=== PATIENT | female | born 1970 | race Caucasian/White ===

== ENCOUNTER 2017-11-26 09:40 | Emergency (ER) | payer OTHER ==
[~2017-11-26] VITALS: Ht 177.8 cm; Wt 103.4 kg
[~2017-11-26 09:40] MED LIST: ACETAMINOPHEN-1 EAC1 PO; AUGMENTIN 875875 MG PO; BUTALB-APAP-CA1 EACH PO; CRUTCHES MISCELL; FIORINAL 50-321 EACH PO; FLEXERIL PO; HYDROCODON-ACE1 EAC7 PO; HYDROCODONE-AP1 EAC6 PO; IBUPROFEN 800800 M1 PO; MEDROLDOSEPACK PO; NOHOMEMEDICATIONS; NORCO 5-325 TA1 EACH PO; OCUFLOX10 ML OP; ONDANSETRON HCL4 M2 PO; OTHER MISCELL; PERCOCET 5-3251 EACH PO; PROMETHAZINE12.5 M1 PO; TRAMADOL 50 MG50 MG PO
[2017-11-26 10:50] VITALS: BP 142/79
== END 2017-11-26 10:51 | disposition home or self-care (01) ==
LOC: M.ERS 09:40
DX: S90.121A Contusion of right lesser toe(s) without damage to nail, initial encounter (principal); G43.909 Migraine, unspecified, not intractable, without status migrainosus; F17.210 Nicotine dependence, cigarettes, uncomplicated; Z90.710 Acquired absence of both cervix and uterus; Z88.2 Allergy status to sulfonamides; Z88.8 Allergy status to other drugs, medicaments and biological substances; W22.8XXA Striking against or struck by other objects, initial encounter; Y93.89 Activity, other specified; Y92.89 Other specified places as the place of occurrence of the external cause; Y99.8 Other external cause status

== ENCOUNTER 2020-09-07 20:35 | Emergency (ER) | payer OTHER ==
[~2020-09-07] VITALS: Ht 175.3 cm; Wt 99.8 kg
[2020-09-07] MEDS ORDERED: ZYRTEC10 M2 PO (20:50)
[2020-09-07] MEDS ORDERED: TROKENDI XR200 MG PO (20:50)
[2020-09-07] MEDS ORDERED: COMPAZINE10 MG PO (20:50)
[2020-09-07] MEDS ORDERED: TRAMADOL 50 MG50 MG PO (20:51)
[2020-09-07] MEDS ORDERED: NURTEC ODT75 MG PO (20:52)
[2020-09-07 22:28] VITALS: BP 167/98
== END 2020-09-07 22:28 | disposition home or self-care (01) ==
LOC: M.ERS 20:35
DX: G43.909 Migraine, unspecified, not intractable, without status migrainosus (principal); F17.210 Nicotine dependence, cigarettes, uncomplicated; Z90.710 Acquired absence of both cervix and uterus; Z90.49 Acquired absence of other specified parts of digestive tract; Z90.89 Acquired absence of other organs; Z88.2 Allergy status to sulfonamides; Z91.040 Latex allergy status; Z88.8 Allergy status to other drugs, medicaments and biological substances; S09.8XXA Other specified injuries of head, initial encounter; W22.8XXA Striking against or struck by other objects, initial encounter; Y93.89 Activity, other specified; Y92.89 Other specified places as the place of occurrence of the external cause; Y99.8 Other external cause status